=== PATIENT | female | born 1965 | race Caucasian/White ===

== ENCOUNTER 2020-06-18 12:31 | Outpatient (CLI) | payer MEDICARE, SELFPAY ==
[2020-06-18 13:38] LABS: Anion Gap 11.5 mmol/L (7-16); Blood Urea Nitrogen 23 mg/dL (7-17); Calcium 9.6 mg/dL (8.4-10.2); Carbon Dioxide 27 mmol/L (22-30); Chloride 102 mmol/L (98-107); Estimated Glomerular Filt Rate 58; Glucose 77 mg/dL (65-105); Potassium 3.5 mmol/L (3.4-5.0); Sodium 137 mmol/L (137-145)
== END 2020-06-18 12:32 | disposition home or self-care (01) ==
PROVIDERS: PCP Nurse Practitioner Family; Visit Provider Internal Medicine
DX: N20.0 Calculus of kidney (principal)
CPT/HCPCS: 36415; 80048

== ENCOUNTER 2020-09-26 08:15 | Outpatient (CLI) | payer MEDICARE, BC, SELFPAY ==
[2020-09-26 15:43] LABS: Alanine Aminotransferase 93 U/L (4-35); Alkaline Phosphatase 54 U/L (38-126); Anion Gap 7 mmol/L (8-16); Aspartate Amino Transferase 72 U/L (14-36); Bilirubin,Total 0.5 mg/dL (0.2-1.3); Blood Urea Nitrogen 19 mg/dL (7-17); Carbon Dioxide 32 mmol/L (22-30); Chloride 101 mmol/L (98-107); Cholesterol 309 mg/dL (0-200); Estimated Glomerular Filt Rate 58; Glucose 87 mg/dL (65-105); HDL Direct 62 mg/dL; Potassium 3.6 mmol/L (3.4-5.0); Sodium 140 mmol/L (137-145); Triglycerides 247 mg/dL (<150)
[2020-09-26 15:57] LABS: LDL Cholesterol Direct 210 mg/dL
== END 2020-09-26 08:16 | disposition home or self-care (01) ==
PROVIDERS: PCP Nurse Practitioner Family; Visit Provider Nurse Practitioner Family
DX: E66.9 Obesity, unspecified (principal); Z13.29 Encounter for screening for other suspected endocrine disorder
CPT/HCPCS: 36415; 80053; 80061

== ENCOUNTER 2020-10-05 17:36 | Outpatient (CLI) | payer MEDICARE, SELFPAY ==
--- NOTE | ~2020-10-05 | XR_ITS ---
EXAMINATION: XR chest 2V DATE: 10/05/2020 18:41 INDICATION: Dermatopolymyositis TECHNIQUE: PA and lateral views of the chest were obtained. COMPARISON: None FINDINGS: The lungs are clear with no focal airspace opacities, pulmonary edema, pleural effusion or pneumothor ax. The cardiomediastinal silhouette is normal. Moderate thoracic spondylosis. IMPRESSION: 1. No acute cardiopulmonary disease. Reviewed, dictated and finalized at location H. [facility]
== END 2020-10-05 17:37 | disposition home or self-care (01) ==
PROVIDERS: PCP Nurse Practitioner Family; Visit Provider Internal Medicine
DX: M33.90 Dermatopolymyositis, unspecified, organ involvement unspecified (principal); R70.0 Elevated erythrocyte sedimentation rate; M47.814 Spondylosis without myelopathy or radiculopathy, thoracic region
CPT/HCPCS: 71046

== ENCOUNTER → 2021-03-21 11:42 | Outpatient (CLI) | payer MEDICARE, SELFPAY ==
--- NOTE | ~2021-03-21 | XR_ITS ---
EXAMINATION: XR hip BI 2V w AP pelvis EXAM DATE: 03/21/2021 12:05 INDICATION: No known recent injury provided at this time. Pain of the hips. TECHNIQUE: Each hip imaged independently (separate right and also left hip) 'frog leg' and frontal p rojections for interpretation. Frontal projection pelvis. There is no prior study for comparison. FINDINGS: No radiographic evidence of hip avascular necrosis. There is moderate symmetric bilateral hip primary osteoarthritis. There are no acute fractures or dislocations identified. There is no sub cutaneous gas. The soft tissue is unremarkable. There are no radiopaque foreign bodies. IMPRESSION: Moderate bilateral hip osteoarthritis. Reviewed, dictated and finalized at location B.
== END ==
PROVIDERS: PCP Nurse Practitioner Family; Visit Provider Nurse Practitioner Adult Health
DX: M16.0 Bilateral primary osteoarthritis of hip (principal)
CPT/HCPCS: 73521

== ENCOUNTER 2021-09-29 15:30 | Emergency (ER) | payer MEDICARE, SELFPAY ==
--- NOTE | ~2021-09-29 | XR_ITS ---
EXAMINATION: XR hand LT min 3V DATE: 09/29/2021 16:01 INDICATION: Left hand and base of thumb pain. Injury. TECHNIQUE: 3 views of left thumb were obtained. COMPARISON: None. FINDINGS: Bone alignment is normal. No fracture. There is mild osteoarthritis of first interphalangea l joint and second and third distal interphalangeal joints. There are small periarticular calcificati ons at first interphalangeal joint and ulnar base of fifth proximal phalanx. IMPRESSION: 1. Mild polyarticular osteoarthritis. Reviewed, dictated and finalized at location A. [facility]
[2021-09-29 15:41] VITALS: BP 151/86; PULSE 114; RESP 18; TEMP 37.1; O2SAT 98
--- NOTE | 2021-09-29 15:43 | ED.UPPEXIN ---
HPI - Extremity Injury (Upper) General Chief Complaint: Extremity Injury, Upper Stated Complaint: lt thumb inj Time Seen by Provider: 09/29/21 15:40 Source: patient and RN notes reviewed Mode of arrival: ambulatory Limitations: no limitations History of Present Illness HPI narrative: Jessica is a 55-year-old female [facility] Patient complains of pain to her left thumb. Patient states she was putting her dog kennel in the car and fell forward on her left thumb states she heard a pop and crack. Patient has swelling to the base of the left thumb. Patient has not used any [id number] measures. Incident occurred about 30 minutes ago MD complaint: injury to: left and finger (thumb) Related Data Home Medications Medication Instructions Recorded Confirmed montelukast [Singulair] 10 mg PO HS 09/05/19 07/10/21 paroxetine HCl [Paxil] 10 mg PO HS 09/05/19 07/10/21 pramipexole 0.5 mg PO HS 09/05/19 07/10/21 albuterol sulfate 2.5 mg INHALATION Q4-6H PRN 10/06/19 07/10/21 cyclobenzaprine 10 mg tablet 10 mg PO .qd tablet 10/06/19 07/10/21 rituximab 10 mg/mL See Rx Instructions .ROUTE .COMPLEX 10/06/19 07/10/21 concentrate,intravenous tacrolimus 0.1 % topical ointment 1 applic TOPICAL BID 10/06/19 07/10/21 tramadol 50 mg tablet 50 mg PO Q12H PRN tablet 10/06/19 07/10/21 sulfamethoxazole-trimethoprim 1 tablet PO HS 06/07/20 07/10/21 [Bactrim] Allergies Allergy/AdvReac Type Severity Reaction Status Date / Time codeine Allergy Unknown Hives Verified 07/10/21 14:12 erythromycin base Allergy Unknown blood Verified 07/10/21 14:12 sugar drops hydroxychloroquine Allergy Unknown mason-aleksey Verified 07/10/21 14:12 syndrome ibuprofen Allergy Unknown Vomiting Verified 07/10/21 14:12 indomethacin Allergy Unknown Unknown Verified 07/10/21 14:12 Penicillins Allergy Unknown Anaphylaxis Verified 07/10/21 14:12 Review of Systems Review of Systems: CONSTITUTIONAL: Denies body aches, fever, chills, or sweats. EYES: Denies visual changes, redness, or discharge. ENT: Denies rhinorrhea, congestion, sore throat, or otalgia. CARDIOVASCULAR: Denies chest pain, palpitations, or edema. RESPIRATORY: Denies cough or dyspnea. GASTROINTESTINAL: Denies abdominal pain, nausea, vomiting, or diarrhea. GENITOURINARY: Denies dysuria or hematuria. SKIN: Denies rash, itching, or wounds. MUSCULOSKELETAL: Denies back pain, + left thumb pain and swelling NEUROLOGIC: Denies headache, numbness, tingling, or weakness. PSYCH: Denies depression or anxiety. All systems reviewed & are unremarkable except as noted in HPI and below PMFSH Past Medical History Medical History Allergies Anxiety Asthma ESR raised H/O Mason-Aleksey toxic epidermal necrolysis overlap syndrome halfway systemic steroid user Polymyositis-dermatomyositis (~2015) Stroke Surgical History Surgical History H/O endoscopy Hx of tonsillectomy Social History Social History Smoking status: Never smoker Second hand tobacco smoke exposure: Yes Alcohol intake: never Comments At time of signature, I have reviewed and agree with nursing past medical, surgical, social and family history unless otherwise noted. Please see nursing chart for further information. There is no relevant family history pertinent to the presenting complaint Exam Narrative: GENERAL: Well-appearing, well-nourished, and in no acute distress. HEAD: Normocephalic, atraumatic. EYES: EOMI. No redness or drainage. Conjunctivae normal. ENT: Mucous membranes pink and moist. Nares clear. No rhinorrhea. TMs normal bilaterally. Throat normal. Uvula midline. NECK: Normal AROM. Supple. No lymphadenopathy. CHEST: No respiratory distress. Clear to auscultation. HEART: Regular rate and rhythm. No murmur appreciated. No
== END 2021-09-29 16:24 | disposition home or self-care (01) ==
PROVIDERS: Emergency Provider Nurse Practitioner Family; PCP Nurse Practitioner Family
DX: S63.602A Unspecified sprain of left thumb, initial encounter (principal); W19.XXXA Unspecified fall, initial encounter; J45.909 Unspecified asthma, uncomplicated; L51.3 Stevens-Johnson syndrome-toxic epidermal necrolysis overlap syndrome; Z86.73 Personal history of transient ischemic attack (TIA), and cerebral infarction without residual deficits
CPT/HCPCS: 73130; 99213; G0463

== ENCOUNTER 2021-10-15 08:37 | Outpatient (CLI) | payer MEDICARE, SELFPAY ==
[2021-10-15 09:37] LABS: LDL Cholesterol Direct 172 mg/dL
[2021-10-15 09:38] LABS: Parathyroid Intact 87.7 pg/mL (7.5-53.5)
[2021-10-15 09:41] LABS: Alanine Aminotransferase 31 U/L (4-35); Albumin Level 4.4 g/dL (3.5-5.1); Alkaline Phosphatase 58 U/L (38-126); Aspartate Amino Transferase 33 U/L (14-36); Bilirubin,Total 0.7 mg/dL (0.2-1.3); HDL Direct 78 mg/dL; Triglycerides 218 mg/dL (<150)
[2021-10-15 09:48] LABS: Cholesterol 337 mg/dL (0-200)
[2021-10-15 11:38] LABS: Free T4 Free Thyroxine 0.83 ng/mL (0.78-2.19)
== END 2021-10-15 08:38 | disposition home or self-care (01) ==
LOC: ANHLAB 08:42
PROVIDERS: PCP Nurse Practitioner Family; Visit Provider Nurse Practitioner Family
DX: E78.5 Hyperlipidemia, unspecified (principal); R79.89 Other specified abnormal findings of blood chemistry; N20.0 Calculus of kidney
CPT/HCPCS: 36415; 80061; 80076; 83970; 84439; 84443

== ENCOUNTER 2022-02-19 10:17 | Outpatient (CLI) | payer MEDICARE, SELFPAY ==
[2022-02-19 13:18] LABS: Hemoglobin 13.3 g/dL (12.0-15.0); Mean Corpuscular HGB Conc 30.9 g/dl (32-36); Mean Corpuscular Hemoglobin 35.5 pg (26-34); Mean Corpuscular Volume 114.7 fl (80-100); Mean Platelet Volume 9.3 fl (7.4-10.4); Platelet Count Result 318 k/mm3 (150-375); Red Blood Count 3.75 M/mm3 (4.2-5.4); Red Cell Distribution Width 13.8 % (11.5-14.5); White Blood Count 4.6 K/mm3 (4.5-10.0)
[2022-02-19 16:10] LABS: Add Urine Microscopic? YES; Appearance Urine Cloudy (Clear); Bilirubin Urine Negative (Negative); Blood Urine Negative (Negative); Color Urine Yellow (Yellow); Glucose Urine UA Negative (Negative); Ketones Urine Negative (Negative); Leukocyte Esterase Ur Negative LEU/UL (Negative); Mucus Urine Rare /lpf; Nitrate Urine Negative (Negative); Protein Urine Negative (Negative); RBC Urine 0-2 /hpf (0-2); Specific Grav Ur 1.012 (1.001-1.035); Squamous Epithelial Cell Urine Few /hpf (Few); Urobilinogen Urine Negative mg/dL (<2.0); WBC Urine 0-3 /hpf
[2022-02-19 16:15] LABS: Hemoglobin A1C 4.7 % (<5.7)
[2022-02-19 16:19] LABS: Alanine Aminotransferase 34 U/L (4-35); Albumin Level 4.4 g/dL (3.5-5.1); Alkaline Phosphatase 58 U/L (38-126); Anion Gap 7 mmol/L (8-16); Aspartate Amino Transferase 38 U/L (14-36); Bilirubin,Total 0.5 mg/dL (0.2-1.3); Blood Urea Nitrogen 13 mg/dL (7-17); CRP < 0.5 mg/dL (<1.0); Calcium 8.9 mg/dL (8.4-10.2); Carbon Dioxide 27 mmol/L (22-30); Chloride 106 mmol/L (98-107); Creatine Kinase 51 U/L (30-135); Estimated Glomerular Filt Rate > 60; Glucose 76 mg/dL (65-110); Potassium 3.7 mmol/L (3.4-5.0); Sodium 140 mmol/L (137-145)
[2022-02-19 16:22] LABS: Phosphorus 3.2 mg/dL (2.5-4.5)
[2022-02-19 16:34] LABS: Free T4 Free Thyroxine 0.82 ng/mL (0.78-2.19); Vitamin D 25 Hydroxy 31.1 ng/mL
[2022-02-19 16:56] LABS: Parathyroid Intact 128.8 pg/mL (7.5-53.5)
[2022-02-19 17:39] LABS: Folic Acid > 20.0 ng/mL (2.76->20)
[2022-02-22 11:50] LABS: DHEA-Sulfate 9 mcg/dL (8-188)
[2022-02-23 05:28] LABS: Aldolase 2.6 U/L (<=8.1)
[2022-02-23 12:12] LABS: Triiodothyronine T3 Free 2.5 pg/mL (2.3-4.2)
[2022-02-23 17:02] LABS: Testosterone Free 1.4 pg/mL (0.1-6.4); Testosterone Total 10 ng/dL (2-45)
[2022-02-23 17:49] LABS: Immunoglobulin G, Serum 1207 mg/dL (600-1640); Immunoglobulin G1 700 mg/dL (382-929); Immunoglobulin G2 390 mg/dL (241-700); Immunoglobulin G3 46 mg/dL (22-178); Immunoglobulin G4 36.1 mg/dL (4.0-86.0)
[2022-02-25 05:17] LABS: Thyroid Peroxidase Antibodies 18 IU/mL (<9)
== END 2022-02-19 10:18 | disposition home or self-care (01) ==
PROVIDERS: Internal Medicine; Internal Medicine Endocrinology, Diabetes & Metabolism; PCP Nurse Practitioner Family; Visit Provider Internal Medicine Hematology & Oncology
DX: R53.83 Other fatigue (principal); E21.3 Hyperparathyroidism, unspecified; M33.90 Dermatopolymyositis, unspecified, organ involvement unspecified; M19.90 Unspecified osteoarthritis, unspecified site; M35.3 Polymyalgia rheumatica; Z51.81 Encounter for therapeutic drug level monitoring; Z79.899 Other long term (current) drug therapy
CPT/HCPCS: 36415; 80053; 81001; 82085; 82306; 82550; 82607; 82627; 82746; 82784; 82787; 83036; 83525; 83970; 84100; 84402; 84403; 84439; 84443; 84481; 85027; 86140; 86376

== ENCOUNTER 2022-03-03 12:52 | Outpatient (CLI) | payer MEDICARE, SELFPAY ==
[2022-03-06 15:01] LABS: Total Volume 1100 mL; Urine Calcium 26.8 mg/dL
== END 2022-03-03 12:53 | disposition home or self-care (01) ==
LOC: ANHLAB 12:55
PROVIDERS: PCP Nurse Practitioner Family; Visit Provider Internal Medicine Endocrinology, Diabetes & Metabolism
DX: R53.83 Other fatigue (principal); E21.3 Hyperparathyroidism, unspecified; R73.01 Impaired fasting glucose; L68.0 Hirsutism
CPT/HCPCS: 82340

== ENCOUNTER 2022-03-19 11:29 | Outpatient (CLI) | payer MEDICARE, SELFPAY ==
[2022-03-19 15:38] LABS: Alanine Aminotransferase 31 U/L (4-35); Albumin Level 4.2 g/dL (3.5-5.1); Alkaline Phosphatase 68 U/L (38-126); Anion Gap 6 mmol/L (8-16); Aspartate Amino Transferase 34 U/L (14-36); Bilirubin,Total 0.4 mg/dL (0.2-1.3); Blood Urea Nitrogen 17 mg/dL (7-17); Calcium 9.5 mg/dL (8.4-10.2); Carbon Dioxide 30 mmol/L (22-30); Chloride 105 mmol/L (98-107); Estimated Glomerular Filt Rate 57; Glucose 88 mg/dL (65-110); Potassium 4.4 mmol/L (3.4-5.0); Sodium 141 mmol/L (137-145)
[2022-03-19 15:55] LABS: Free T4 Free Thyroxine 0.92 ng/mL (0.78-2.19); Vitamin D 25 Hydroxy 26.5 ng/mL
[2022-03-19 16:20] LABS: Parathyroid Intact 73.6 pg/mL (7.5-53.5)
[2022-03-22 08:37] LABS: Triiodothyronine T3 Free 2.3 pg/mL (2.3-4.2)
== END 2022-03-19 11:30 | disposition home or self-care (01) ==
LOC: ANHLAB 11:31
PROVIDERS: PCP Nurse Practitioner Family; Visit Provider Internal Medicine Endocrinology, Diabetes & Metabolism
DX: E21.0 Primary hyperparathyroidism (principal); E03.9 Hypothyroidism, unspecified
CPT/HCPCS: 36415; 80053; 82306; 83970; 84439; 84443; 84481

== ENCOUNTER 2023-03-17 11:49 | Outpatient (CLI) | payer MEDICARE, SELFPAY ==
[2023-03-17 12:08] LABS: Hematocrit 38.2 % (37.0-47.0); Hemoglobin 12.6 g/dL (12.0-15.0); Mean Corpuscular Hemoglobin 33.3 pg (26-34); Mean Corpuscular Volume 101.1 fl (80-100); Mean Platelet Volume 8.9 fl (7.4-10.4); Platelet Count Result 323 k/mm3 (150-375); Red Blood Count 3.78 M/mm3 (4.2-5.4); Red Cell Distribution Width 13.8 % (11.5-14.5); White Blood Count 7.1 K/mm3 (4.5-10.0)
[2023-03-17 16:53] LABS: Cholesterol 308 mg/dL (0-200); HDL Direct 46 mg/dL; Triglycerides 179 mg/dL (<150)
[2023-03-17 16:59] LABS: Alanine Aminotransferase 50 U/L (6-35); Albumin Level 4.5 g/dL (3.5-5.1); Alkaline Phosphatase 100 U/L (38-126); Anion Gap 6 mmol/L (8-16); Aspartate Amino Transferase 52 U/L (14-36); Bilirubin,Total 0.7 mg/dL (0.2-1.3); Blood Urea Nitrogen 19 mg/dL (7-17); CRP 1.1 mg/dL (<1.0); Calcium 9.4 mg/dL (8.4-10.2); Carbon Dioxide 27 mmol/L (22-30); Chloride 106 mmol/L (98-107); Creatine Kinase 156 U/L (30-135); Estimated Glomerular Filt Rate > 60; Glucose 77 mg/dL (65-110); Lactate Dehydrogenase 292 U/L (120-246); Potassium 4.1 mmol/L (3.4-5.0); Sodium 139 mmol/L (137-145)
[2023-03-17 17:01] LABS: Iron 118 ug/dL (37-170)
[2023-03-17 17:04] LABS: LDL Cholesterol Direct 177 mg/dL
[2023-03-17 17:12] LABS: Percent Iron Saturation 35 % (20-50)
[2023-03-17 17:24] LABS: Appearance Urine Clear (Clear); Bilirubin Urine Negative (Negative); Blood Urine Negative (Negative); Color Urine Yellow (Yellow); Glucose Urine UA Negative (Negative); Ketones Urine Negative (Negative); Leukocyte Esterase Ur Negative LEU/UL (Negative); Nitrate Urine Negative (Negative); Protein Urine Negative (Negative); Specific Grav Ur 1.009 (1.001-1.035); Urobilinogen Urine 0.2 mg/dL (<2.0)
[2023-03-17 17:27] LABS: Add Urine Microscopic? NO
[2023-03-17 17:49] LABS: Erythrocyte Sedimentation Rate 55 mm/hr (0-20)
[2023-03-22 04:56] LABS: Aldolase 3.3 U/L (<=8.1)
== END 2023-03-17 11:50 | disposition home or self-care (01) ==
LOC: ANHLAB 11:51
PROVIDERS: PCP Nurse Practitioner Family; Visit Provider Internal Medicine
DX: M35.3 Polymyalgia rheumatica (principal); E21.3 Hyperparathyroidism, unspecified; M33.90 Dermatopolymyositis, unspecified, organ involvement unspecified; M19.90 Unspecified osteoarthritis, unspecified site; E78.5 Hyperlipidemia, unspecified; D50.9 Iron deficiency anemia, unspecified; R79.89 Other specified abnormal findings of blood chemistry
CPT/HCPCS: 36415; 80053; 80061; 81003; 82085; 82550; 82728; 83540; 83550; 83615; 84443; 85027; 85652; 86140

== ENCOUNTER → 2023-05-28 08:14 | Outpatient (CLI) | payer MEDICARE, SELFPAY ==
--- NOTE | ~2023-05-28 | MR_ITS ---
MRI of the lumbar spine Clinical History: Radiculopathy Technique: Axial T2-weighted images, and sagittal T1-weighted, T2-weighted, and T2 fat-sat images wer e acquired. Findings: There is mild compression deformity at the superior endplate of L4, probably subacute in na ture, with minimal marrow edema and visible hypointense fracture line. No other fracture or subluxati on seen. At L1-L2 and L2-L3, there is no disc bulge or herniation. There is mild to moderate facet arthropathy levels. No spinal canal stenosis or neural foraminal narrowing. At L3-L4, there is disc protrusion, predominantly centrally extending to left paracentral left forami nal region, with moderate facet arthropathy. These factors result in severe spinal canal stenosis/the jose maria sac compression. Neural foramina are preserved. At L4-L5, there is minimal disc bulge with moderate facet arthropathy. No central canal stenosis. No neural foraminal narrowing. At L5-S1, there is advanced degenerative disc narrowing. There is disc bulge and mild facet arthropat hy. No central canal stenosis. There is mild bilateral neural foraminal narrowing. Paravertebral soft tissues are unremarkable. Impression: Mild compression fracture of L4, probably subacute. Severe degenerative spondylosis at L3-L4, as detailed above, with severe spinal canal stenosis/thecal sac compression. Additional mild degenerative changes, as above. Reviewed, dictated and finalized at [facility]. Impression: Mild compression fracture of L4, probably subacute. Severe degenerative spondylosis at L3-L4, as detailed above, with severe spinal canal stenosis/thecal sac compression. Additional mild degenerative changes, as above.
== END ==
PROVIDERS: PCP Nurse Practitioner Family; Visit Provider Nurse Practitioner Family
DX: M47.26 Other spondylosis with radiculopathy, lumbar region (principal); S32.040A Wedge compression fracture of fourth lumbar vertebra, initial encounter for closed fracture; X58.XXXA Exposure to other specified factors, initial encounter
CPT/HCPCS: 72148

== ENCOUNTER 2023-06-28 18:06 | Emergency (ER) | payer MEDICARE, SELFPAY ==
[2023-06-28 18:14] VITALS: BP 130/71; PULSE 105; RESP 18; TEMP 36.2; O2SAT 97
--- NOTE | 2023-06-28 18:33 | ED.URI ---
HPI - URI/Sore Throat General Chief Complaint: Upper Respiratory Infection Stated Complaint: Congestion,Headache Time Seen by Provider: 06/28/23 18:07 Source: patient Mode of arrival: ambulatory Limitations: no limitations History of Present Illness HPI Narrative: 57-year-old female presents to [facility] with complaints of left sinus pressure, headache, postnasal drip, nasal congestion and runny nose for the past 7-10 days. Patient takes Xyzal and Singulair daily. Patient reports that her left eye has been watery for the past 6 weeks. Patient reports that she takes prednisone daily for history of dermatomyositis. Patient denies sick contacts. Patient denies recent travel. Patient denies fever, body aches, chills, nausea, vomiting or diarrhea. Patient reports that she is not able to tolerate nasal sprays MD elicited complaint: rhinorrhea, nasal congestion and sinus pain Onset (ago): day(s) (7-10) Able to tolerate fluids by mouth: Yes Exacerbating factors: nothing Relieving factors: nothing Treatments prior to arrival: other (Xyzal and Singulair) Related Data Home Medications Medication Instructions Recorded Confirmed montelukast 10 mg tablet 10 mg PO HS 09/05/19 06/28/23 (Singulair) paroxetine HCl 10 mg tablet (Paxil) 10 mg PO HS 09/05/19 06/28/23 pramipexole 0.5 mg tablet 0.5 mg PO HS 09/05/19 06/28/23 albuterol sulfate 2.5 mg/3 mL 2.5 mg inhalation Q4-6H PRN 10/06/19 06/28/23 (0.083 %) solution for nebulization Allergic Symptoms cyclobenzaprine 10 mg tablet 10 mg PO BID 10/06/19 06/28/23 rituximab 10 mg/mL See Rx Instructions .Route .COMPLEX 10/06/19 06/28/23 concentrate,intravenous (Rituxan) indomethacin 50 mg capsule 50 mg PO BID 09/25/22 06/28/23 hydrocodone 5 mg-acetaminophen 325 1 tablet PO BID 06/28/23 06/28/23 mg tablet prednisone 10 mg tablet 30 mg PO DAILY 06/28/23 06/28/23 Allergies Allergy/AdvReac Type Severity Reaction Status Date / Time Penicillins Allergy Severe Anaphylaxis Verified 06/28/23 18:07 codeine Allergy Unknown Hives Verified 06/28/23 18:07 erythromycin base Allergy Unknown blood Verified 06/28/23 18:07 sugar drops hydroxychloroquine Allergy Unknown mason-aleksey Verified 06/28/23 18:07 syndrome ibuprofen Allergy Unknown Vomiting Verified 06/28/23 18:07 indomethacin Allergy Unknown Unknown Verified 06/28/23 18:07 Review of Systems Constitutional: Constitutional: Denies chills, Denies fatigue, Denies fever(s) and Denies weakness ENT: Denies dizziness, Denies epistaxis, Reports nasal congestion and Denies sore throat Comments: Sinus pressure, runny nose Cardiovascular: Cardiovascular: Denies chest pain Respiratory: Respiratory: Denies chest congestion, Denies cough, Denies dyspnea and Denies wheezing Gastrointestinal: Gastrointestinal: Denies diarrhea, Denies nausea and Denies vomiting Integumentary/Breasts: Skin/Breast: Denies erythema and Denies rash Neurologic: Denies vertigo, Denies dizziness, Denies syncope and Reports headache(s) Allergic/Immunologic: Allergic/Immunologic: Denies throat swelling, Denies tongue swelling and Denies wheezing PMFSH Past Medical History Medical History Allergies Anxiety Arthritis Asthma Bilateral hand numbness ESR raised H/O Mason-Aleksey toxic epidermal necrolysis overlap syndrome History of stroke Hyperparathyroidism (~2020) manager cardiac systemic steroid user Polymyositis-dermatomyositis (~2015) Stroke Surgical History Surgical History H/O endoscopy History of parathyroidectomy Hx of tonsillectomy Family History Family History Sibling Asthma Father Cancer Mother Heart disease Social History Social History Smoking status: Never smoker Second hand tobacco smoke exposure: Yes Alcoho
== END 2023-06-28 18:41 | disposition home or self-care (01) ==
PROVIDERS: Emergency Provider Nurse Practitioner Family; PCP Nurse Practitioner Family
DX: J01.10 Acute frontal sinusitis, unspecified (principal); M19.90 Unspecified osteoarthritis, unspecified site; J45.909 Unspecified asthma, uncomplicated; Z86.73 Personal history of transient ischemic attack (TIA), and cerebral infarction without residual deficits; Z90.89 Acquired absence of other organs; F41.9 Anxiety disorder, unspecified
CPT/HCPCS: 99213; G0463

== ENCOUNTER 2024-06-03 16:50 | Outpatient (CLI) | payer MEDICARE, SELFPAY ==
--- NOTE | ~2024-06-03 | CT_ITS ---
Procedure: CT hip RT wo con Ordering provider: Osmar Calderón MD History: . M16.11 - Unilateral primary osteoarthritis, right hip . Comparison: None. Technique: Thin slice axial CT of the No IV contrast was given. Sagittal and coronal reformatted imag es were also obtained and reviewed. Radiation reduction technique utilized. DLP is 490.23mGy-cm. Findings: BONES: Multiple bony fragments in the acetabulum. No definite fractures seen. Sclerotic area in the f emoral neck which may be bone infarct. Osteomyelitis cannot be excluded. JOINT SPACES: Fragments are seen in the right acetabulum suggestive of old fracture with intra acetab ular fragments. Irregular outline of the femoral head is noted. Lateral subluxation of the femoral he ad is noted. Widening of the joint space is seen suggestive of effusion. Inflammatory process cannot be excluded. Further evaluation of the fluid in the acetabulum is advised. Protrusio acetabuli is see n. Right sacroiliitis. SOFT TISSUES: Myositis ossificans is seen in the right iliac is muscle. Myositis ossificans are seen lateral to the right iliac bone. IMPRESSION: Multiple bony fragments in the acetabulum which may be posttraumatic traumatic or post infectious. Fu rther evaluation advised. 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 Subluxation of the right femoral head with irregularity of the outline. Reviewed, dictated and finalized at location A. IMPRESSION: Multiple bony fragments in the acetabulum which may be posttraumatic traumatic or post infectious. Further evaluation advised. 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 Subluxation of the right femoral head with irregularity of the outline.
== END 2024-06-03 16:51 | disposition home or self-care (01) ==
PROVIDERS: PCP Nurse Practitioner Family; Visit Provider Orthopaedic Surgery
DX: M16.11 Unilateral primary osteoarthritis, right hip (principal); M61.551 Other ossification of muscle, right thigh; S73.001A Unspecified subluxation of right hip, initial encounter; X58.XXXA Exposure to other specified factors, initial encounter
CPT/HCPCS: 73700